=== PATIENT | male | born 1980 | race Caucasian/White ===

== ENCOUNTER 2019-01-02 19:41 | Emergency (ER) | payer OTHER ==
[~2019-01-02] VITALS: Ht 170.2 cm; Wt 104.1 kg
[~2019-01-02 19:41] MED LIST: HYDR-3498 PO; IBUP-1542 PO
[2019-01-02 20:04] VITALS: Ht 170.2 cm; Wt 104.1 kg
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
[2019-01-02] MEDS ORDERED: IBUP800T48 PO (23:46)
[2019-01-02] MEDS ORDERED: ONDA4TAB8 PO (23:47)
[2019-01-03 00:28] VITALS: BP 147/80; PULSE 85; RESP 18
== END 2019-01-03 00:28 | disposition home or self-care (01) ==
LOC: FTE 19:41
DX: T62.91XA Toxic effect of unspecified noxious substance eaten as food, accidental (unintentional), initial encounter (principal); K52.9 Noninfective gastroenteritis and colitis, unspecified
CPT/HCPCS: 36415; 80053; 81001; 81003; 82150; 83690; 85025; 99283